=== PATIENT | male | born 1975 | race Caucasian/White ===

== ENCOUNTER 2020-11-28 13:28 | Outpatient (CLI) | payer MEDICAID ==
[2020-11-28 21:47] LABS: SARS-CoV-2 PCR by NAA Not Detected (NotDetected)
== END 2020-11-28 13:29 | disposition home or self-care (01) ==
LOC: CSHLAB 13:28
PROVIDERS: ATTEND Internal Medicine Gastroenterology
DX: Z20.822 Contact with and (suspected) exposure to COVID-19 (principal); R19.5 Other fecal abnormalities
CPT/HCPCS: 87635; U0003; U0005

== ENCOUNTER 2020-12-01 08:50 | Day surgery (SDC) | payer OTHER ==
[2020-11-30 15:00] VITALS: BMI 32.2
[2020-12-01] MEDS ORDERED: Lidocaine 1% MPF 2 ML VIAL ONE (10:30)
[2020-12-01] MEDS ORDERED: PROPOFOL 20 ML ONE ×2 (11:37)
== END 2020-12-01 13:10 | disposition home or self-care (01) ==
LOC: CSHSDC 08:50
PROVIDERS: ATTEND Internal Medicine Gastroenterology
PROC: 0DJD8ZZ Inspection of Lower Intestinal Tract, Via Natural or Artificial Opening Endoscopic (ICD-10-PCS; principal; 2020-12-01)
DX: R19.5 Other fecal abnormalities (principal); K64.8 Other hemorrhoids; E83.119 Hemochromatosis, unspecified; D45 Polycythemia vera; I10 Essential (primary) hypertension; E78.5 Hyperlipidemia, unspecified; G40.909 Epilepsy, unspecified, not intractable, without status epilepticus; I69.354 Hemiplegia and hemiparesis following cerebral infarction affecting left non-dominant side; K21.9 Gastro-esophageal reflux disease without esophagitis; J30.9 Allergic rhinitis, unspecified; G47.30 Sleep apnea, unspecified; Z88.8 Allergy status to other drugs, medicaments and biological substances; Z79.82 Long term (current) use of aspirin; Z79.899 Other long term (current) drug therapy
CPT/HCPCS: J2704